=== PATIENT | female | born 1995 | race Caucasian/White ===

== ENCOUNTER 2020-11-29 11:08 | Emergency (ER) | payer OTHER ==
[2020-11-29 11:59] LABS: RED BLOOD COUNT 4.67 M/UL (4.00-5.10); WHITE BLOOD COUNT 11.6 K/UL (4.5-11.0)
== END 2020-11-29 14:00 | disposition home or self-care (01) ==
LOC: ER1 11:08
PROVIDERS: Emergency Medicine
DX: N93.9 Abnormal uterine and vaginal bleeding, unspecified (principal); Z98.890 Other specified postprocedural states
CPT/HCPCS: 76830; 84702; 85025; 86900; 86901; 99284